=== PATIENT | male | born 1990 | race Caucasian/White ===

== ENCOUNTER 2022-02-10 00:39 | Emergency (ER) | payer OTHER ==
[~2022-02-10] VITALS: Ht 172.7 cm; Wt 72.6 kg
--- NOTE | 2022-02-10 00:55 | NUR ---
Dr. Valenzuela at bedside for MSE.
[2022-02-10] MEDS ORDERED: HYDROCODONE/APAP 5-325MG TABLET PO ONE (01:00)
[2022-02-10] MEDS ORDERED: HYDROCODONE/APAP 5-325MG TABLET ONE (01:07)
[2022-02-10] MEDS ORDERED: IBUP-1958 PO (01:14)
[2022-02-10] MEDS ORDERED: HYDR-4209 PO (01:14)
--- NOTE | 2022-02-10 01:21 | NUR ---
Patient given written and verbal discharge instructions. Pt denies being homeless, but appears to be. Patient verbalizes understanding of instructions. Patient is ambulatory with steady gait. Refuses offer of half-way placement. Patient given list of available shelters in surrounding area. Pt provided with food per pt request, VSS, no acute signs of distress, VSS, all belongings taken, refuses all other services at this time.
[2022-02-10 01:22] VITALS: BP 133/92
== END 2022-02-10 01:22 | disposition home or self-care (01) ==
LOC: ER 00:50
DX: G89.18 Other acute postprocedural pain (principal)
CPT/HCPCS: A4663